=== PATIENT | male | born 1990 | race Two or more races ===

== ENCOUNTER 2019-10-12 15:29 | Emergency (ER) | payer SELFPAY ==
[~2019-10-12] VITALS: Ht 185.4 cm; Wt 73.0 kg
[2019-10-12 15:36] VITALS: BP 202/111
[2019-10-12] MEDS ORDERED: IV NORMAL SALINE 1000ML BAG 1,000 ML IV ONE (15:45)
--- NOTE | 2019-10-12 16:00 | RAD ---
2 views right shoulder 10/12/2019 3:39 PM Indication: Reason: pain, deformity, concern for dislocation right shoulder / Spl. Instructions: / History: Comparison: None Findings: There is an anterior shoulder dislocation. Suspected small Hill-Sachs deformity. No other fracture is identified. IMPRESSION: Anterior shoulder dislocation, with suspected Hill-Sachs deformity. Postreduction radiographs recommended Electronically signed by: Sancho Henderson MD (10/12/2019 3:58 PM) [id number]
--- NOTE | 2019-10-12 16:11 | PHYS DOC ---
Past Medical History Past Medical History: Other Additional Past Medical Histor: shoulder dislocations Past Surgical History: No Surgical History Smoking Status: Current Some Day Smoker Alcohol Use: Occasionally General Adult EDM: Chief Complaint: SHOULDER INJURY HPI: HPI: 29-year-old male presents emergency department for right shoulder dislocation that happened an hour ago. Patient states that this is happened before. Patient dislocated shoulder 1 year ago after falling onto his shoulder. He had a reduced in the emergency room under anesthesia without complications at that time. 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 While holding the board above his head he made a "bad movement "and he felt the right glenohumeral joint come out of place. Patient rates his pain as a 10 out of 10. The pain does not radiate anywhere his entire right upper shoulder is in pain. He does not complain of numbness or tingling. This is the first time that it has happened since it was dislocated 1 year ago. Patient describes the pain as achy and sharp with movement. She was brought to the hospital via EMS. Patient is a Kiswahili speaker only. Review of Systems: Review of Systems: Constitutional: Denies fever or chills Eyes: Denies redness or eye pain HENT: Denies nasal congestion or sore throat Respiratory: Denies cough or shortness of breath Cardiovascular: Denies chest pain or palpitations GI: Denies abdominal pain, nausea, or vomiting : Denies dysuria or hematuria Musculoskeletal: Reports right shoulder pain. Integument: Denies rash or skin lesions Neurologic: Denies headache, focal weakness or sensory changes Complete systems were reviewed and found to be within normal limits, except as documented in this note. Current Medications: Current Medications Medications (Trade) Dose Ordered Sig/Abdoulaye Start Time Stop Time Status Last Admin Dose Admin Etomidate (Amidate) 10 mg 1X ONCE 10/12/19 15:45 10/12/19 15:46 UNV Fentanyl Citrate (Fentanyl 2ml Vial) 50 mcg 1X ONCE 10/12/19 15:45 10/12/19 15:46 UNV Sodium Chloride 1,000 ml @ 1,000 mls/hr 1X ONCE 10/12/19 15:45 10/12/19 16:44 UNV Allergies: Allergies: Allergies Coded Allergies Type Severity Reaction Last Updated Verified No Known Drug Allergies 10/12/19 No Physical Exam: PE: Constitutional: Well developed, well nourished, no acute distress, non-toxic appearance HENT: Normocephalic, atraumatic Eyes: PERRL, EOMI, conjunctiva normal, no discharge Neck: Normal range of motion, no tenderness, supple Lungs & Thorax: Bilateral rise and fall of chest bilaterally, no acute respiratory distress. Abdomen: Soft, no tenderness Skin: Warm, dry, no erythema, no rash Back: No tenderness, no CVA tenderness Extremities: Tenderness and restricted range of motion noticed in the right glenohumeral joint. Step-off noted in the right glenohumeral joint. Neurologic: Alert and oriented X 3, normal motor function, normal sensory function, no focal deficits noted Psychologic: Affect normal, judgment normal Current Patient Data: Vital Signs: Vital Signs Date Time Temp Pulse Resp B/P (MAP) Pulse Ox O2 Delivery O2 Flow Rate FiO2 10/12/19 15:36 98.1 69 16 202/111 (141) 98 Room Air 98.1 EKG: EKG: [] Radiology/Procedures: Radiology/Procedures: 2 views right shoulder 10/12/2019 3:39 PM Indication: Reason: pain, deformity, concern for dislocation right shoulder / Spl. Instructions: / History: Comparison: None Findings: There is an anterior shoulder dislocation. Suspected small Hill-Sachs deformity. No other fracture is identified. IMPRESSION: Anterior shoulder dislocation, with suspected Hill-Sachs deformity. Postreduction radiographs recommended Electronically signed by: Sancho Henderson MD (10/12/2019 3:58 PM) [id number] PROCEDURE: SHOULDER RIGHT 1V INDICATION: Reason: s/p reduction / Spl. Instructions: / History: COMPARISON: Earlier same day IMPRESSION: Right shoulder: Single view obtained. Improvement of alignment of previously identified dislocation. There is a suspected indentation at the superior lateral aspect of the humeral head which could be from Hill-Sachs deformity. Electronically signed by: Yunior Alexander MD (10/12/2019 5:22 PM) [id number] Course & Med Decision Making: Course & Med Decision Making Patient presented emergency room with right anterior shoulder dislocation. Patient does have a previous dislocation that occurred 1 year ago after falling directly on his right shoulder. Shoulder was reduced in the emergency department at that time under anesthesia without any complications. Patient was brought via EMS. Patient was given 50 of fentanyl in the ambulance on his way to the ED. For pain while in the emergency department patient was given another 50 of fentanyl. Shoulder was reduced under anesthesia with 10 mg etomidate and 50 fentanyl. Reduction was successful fatty complications. Patient was educated on Rice technique treatment advised to reduce movement of his right upper extremity and keep in sling for 3 days. Dragon Disclaimer: Dragon Disclaimer: This electronic medical record was generated, in whole or in part, using a voice recognition dictation system. Departure Departure Impression: Primary Impression: Shoulder dislocation Qualified Codes: S43.004A - Unspecified dislocation of right shoulder joint, initial encounter Disposition: HOME, SELF-CARE Condition: STABLE Referrals: STAN BESS MD Patient Instructions: Sedation, Moderate, Adult, Shoulder Dislocation, [id number], Shoulder Immobilizer Scripts Hydrocodone/Apap 5-325 (NORCO 5-325 TABLET) 1 Each Tablet 0.5-1 TAB PO PRN Q6HRS PRN for PAIN, #10 TAB 0 Refills Prov: LOUIE DOMINGO DO 10/12/19 Justicifation of Admission Dx: Justifications for Admission: Justification of Admission Dx: N/A MODERATE SEDATION ASSESSMENT* RISKS/ALTERNATIVES Risks/Alternatives Risks and alternatives of this type of sedation and procedure discussed with: H & P ON CHART H & P H & P on chart and reviewed for co-morbid conditions and appropriate labs. MEDS/ALLERGIES REVIEWED Meds/Allergies Reviewed Medications and Allergies including time and route of recently administered narcotics and sedatives. AIRWAY ASSESSMENT Airway Assessment Airway patency, oral function limitations, presence of caps, crowns, dentures, partials, and ability to extend neck assessed. LOUIE DOMINGO DO Oct 12, 2019 16:10
[2019-10-12] MEDS ORDERED: fentaNYL PF VIAL 100 MCG/2 ML VIAL IV ONE (16:15)
[2019-10-12] MEDS ORDERED: fentaNYL PF VIAL 100 MCG/2 ML VIAL IVP ONE (16:15)
[2019-10-12] MEDS: ETOMIDATE 20 MG/10 ML VIAL. IV ONE ×2 (16:48→17:07)
[2019-10-12] MEDS ORDERED: HYDR-3164 PO (17:18)
--- NOTE | 2019-10-12 17:25 | RAD ---
INDICATION: Reason: s/p reduction / Spl. Instructions: / History: COMPARISON: Earlier same day IMPRESSION: Right shoulder: Single view obtained. Improvement of alignment of previously identified dislocation. There is a suspected indentation at the superior lateral aspect of the humeral head which could be from Hill-Sachs deformity. Electronically signed by: Yunior Alexander MD (10/12/2019 5:22 PM) [id number]
== END 2019-10-12 18:35 | disposition home or self-care (01) ==
LOC: ER 15:29
DX: S43.014A Anterior dislocation of right humerus, initial encounter (principal); Z87.891 Personal history of nicotine dependence; Z98.890 Other specified postprocedural states; X58.XXXA Exposure to other specified factors, initial encounter; Y93.89 Activity, other specified; Y92.89 Other specified places as the place of occurrence of the external cause; Y99.0 Civilian activity done for income or pay
CPT/HCPCS: 23650; 73020; 73030; 96360; 99285; J3010; J3490; J7030; 96361; 96374; 96376